=== PATIENT | female | born 1970 | race African-American/Black ===

== ENCOUNTER 2024-11-09 22:58 | Emergency (ER) | payer BC ==
[~2024-11-09] VITALS: Ht 165.1 cm; Wt 91.0 kg
[2024-11-09 23:14] VITALS: BP 120/64; PULSE 88; RESP 18; TEMP 36.9; O2SAT 98
[2024-11-10] MEDS: BACITRACIN ZINC OINT UDPKT TOP ONE (01:02)
[2024-11-10] MEDS: LIDOCAINE HCL/EPINEPHRINE 1%-EPI 1:100,000 20ML VIAL INFIL ONE (01:02)
[2024-11-10] MEDS: TETANUS, DIPHTHERIA, PERTUSSIS VAC/PF 0.5ML (>10YR OLD) IM ONE (01:03)
[2024-11-10] MEDS: ACETAMINOPHEN 500MG TABLET PO ONE (01:32)
[2024-11-10] MEDS ORDERED: CEPH500T MT (03:26)
== END 2024-11-10 04:08 | disposition home or self-care (01) ==
LOC: ER 22:58
DX: S41.112A Laceration without foreign body of left upper arm, initial encounter (principal); Z88.6 Allergy status to analgesic agent; W01.0XXA Fall on same level from slipping, tripping and stumbling without subsequent striking against object, initial encounter; Y93.02 Activity, running; Y92.89 Other specified places as the place of occurrence of the external cause; Y99.8 Other external cause status
CPT/HCPCS: 12007; 99283; 90715; 90471; J2004; Z7610 ×4

== ENCOUNTER 2024-11-21 15:27 | Emergency (ER) | payer BC ==
[~2024-11-21] VITALS: Ht 170.2 cm; Wt 95.0 kg
[~2024-11-21 15:27] MED LIST: CEPH500T MT
[2024-11-21 15:35] VITALS: O2SAT 96
[2024-11-21] MEDS: IBUPROFEN 600MG TABLET PO ONE (17:09)
[2024-11-21] MEDS ORDERED: BO1 TP (17:20)
[2024-11-21 17:25] VITALS: BP 115/70; PULSE 72; RESP 16; TEMP 36.8; O2SAT 96
== END 2024-11-21 17:25 | disposition home or self-care (01) ==
LOC: ER 15:27
DX: S71.112D Laceration without foreign body, left thigh, subsequent encounter (principal); S61.412D Laceration without foreign body of left hand, subsequent encounter; Z88.6 Allergy status to analgesic agent; X58.XXXD Exposure to other specified factors, subsequent encounter
CPT/HCPCS: 99282; Z7610 ×4